=== PATIENT | male | born 1950 | race Two or more races ===

== ENCOUNTER 2019-10-20 13:37 | Emergency (ER) | payer MEDICARE ==
[~2019-10-20] VITALS: Ht 172.7 cm; Wt 83.9 kg
[2019-10-20 13:45] VITALS: BP 166/97
[2019-10-20] MEDS ORDERED: ATORVASTATIN CA20 MG ORAL (13:48)
[2019-10-20] MEDS ORDERED: GLIPIZIDE5 MG ORAL (13:48)
--- NOTE | 2019-10-20 13:48 | NUR ---
ED Nurse Note: walked in from home due to LLQ abdominal pain x3 days. pt aao x4 and ambulatory. calm and cooperative but gramicing for abdominal pain. no cardiac or pulmonary distress noted at this moment. pt is in gown and on surveillance system monitor. at bedside. no N/V at this moment.
--- NOTE | 2019-10-20 13:58 | NUR ---
ED Nurse Note: ERMD at bedside.
--- NOTE | 2019-10-20 14:07 | Emergency Room Report ---
History of Present Illness General Chief Complaint: General Complaint Source: Patient Present Illness HPI Disclaimer: Please note that this report is being documented using [employer] technology. This can lead to erroneous entry secondary to incorrect interpretation by the dictating instrument. HPI: 69-year-old male with history of hypertension diabetes presents for evaluation of abdominal cramping and leg pain. Symptoms began approximately 3 days ago. He states he had a "attack" where he had uncontrollable shaking, cramping in the left upper and lower abdomen rating down the left leg. He noted a tingling in numbness over the left anterior thigh. There is no nausea, vomiting or diarrhea reported recently. Denies chest pain, shortness of breath , cough, fever, chills, dysuria, flank pain. The pain resolved though he did call EMS and was evaluated he declined transport to the hospital at that time. He had a scheduled appointment with his PMD however this was canceled and presented to the emergency today for reevaluation. He said he has had 2 other similar attacks that lasted less than 5 minutes. He is currently asymptomatic but is very concerned. Pain was 10/10 at maximum. Currently pain is 0. No exacerbating or relieving factors noted. He has been eating and drinking at baseline and performing all his other activities of daily living. PMH: Hypertension, hyperlipidemia, diabetes PSH: Reviewed Allergies: Denies Social Hx: Denies Allergies: Coded Allergies: No Known Allergies (Unverified , 10/20/19) Nursing Documentation-PMH Past Medical History: No History, Except For Hx Hypertension: Yes Hx Diabetes: Yes Review of Systems All Other Systems: negative except mentioned in HPI Physical Exam Vital Signs Date Time Temp Pulse Resp B/P (MAP) Pulse Ox O2 Delivery O2 Flow Rate FiO2 10/20/19 13:42 98.2 83 17 166/97 (120) 99 General: Awake and alert, no acute distress HEENT: NC/AT. EOMI. Neck: Supple, trachea midline Chest Wall: No tenderness, no deformity Cardiovascular: RRR. S1 and S2 normal. No murmur appreciated. 2+ femoral pulses. Resp: Normal work of breathing. No cough, wheezing or crackles appreciated Abdomen: Abdomen is soft, slightly distended. Nontender, no rebound, no masses Skin: Intact. No abrasions, laceration or rash over the exposed skin MSK: Normal tone and bulk. Moving all extremities. No obvious deformity. Neuro: Awake and alert. Mentating appropriately. Intact sensation of the dermatomes of lower extremity bilaterally. Strength is 5/5 in all major muscle groups. Back/Spine: No midline tenderness in the cervical, thoracic or lumbosacral spine. Medical Decision Making Diagnostic Impression: Primary Impression: Abdominal pain Additional Impressions: Cardiomegaly Enlarged prostate Enlarged thyroid Renal arterial aneurysm ER Course 61-year-old male presents for evaluation of intermittent cramping and abdominal distention over the past 3 days rating down the left leg. Differential includes was not limited to gas pains, constipation, abdominal cramping, musculoskeletal cramping, pancreatitis, cholecystitis, appendicitis, bowel obstruction, vascular injury, AAA, aortic dissection. He rested stable vital signs, ambulated in the emergency department has no complaints at the soft abdomen and no pulsatile mass identified must rule out AAA and dissection. We will start broad metabolic infectious work-up and sent for CTA of the abdomen. Laboratory Tests Test 10/20/19 14:15 10/20/19 14:50 White Blood Count 9.5 K/UL (4.8-10.8) Red Blood Count 5.11 M/UL (4.70-6.10) Hemoglobin 16.2 G/DL (14.2-18.0) Hematocrit 43.1 % (42.0-52.0) Mean Corpuscular Volume 84 FL (80-99) Mean Corpuscular Hemoglobin 31.7 PG (27.0-31.0) H Mean Corpuscular Hemoglobin Concent 37.6 G/DL (32.0-36.0) H Red Cell Distribution Width 10.8 % (11.6-14.8) L Platelet Count 141 K/UL (150-450) L Mean Platelet Volume 9.8 FL (6.5-10.1) Neutrophils (%) (Auto) 60.0 % (45.0-75.0) Lymphocytes (%) (Auto) 30.6 % (20.0-45.0) Monocytes (%) (Auto) 7.3 % (1.0-10.0) Eosinophils (%) (Auto) 1.1 % (0.0-3.0) Basophils (%) (Auto) 0.9 % (0.0-2.0) Sodium Level 141 MMOL/L (136-145) Potassium Level 3.5 MMOL/L (3.5-5.1) Chloride Level 102 MMOL/L (98-107) Carbon Dioxide Level 29 MMOL/L (21-32) Anion Gap 10 mmol/L (5-15) Blood Urea Nitrogen 25 mg/dL (7-18) H Creatinine 1.2 MG/DL (0.55-1.30) Estimate Glomerular Filtration Rate > 60 mL/min (>60) Glucose Level 252 MG/DL (74-106) H Calcium Level 9.2 MG/DL (8.5-10.1) Total Bilirubin 0.6 MG/DL (0.2-1.0) Aspartate Amino Transferase (AST) 10 U/L (15-37) L Alanine Aminotransferase (ALT) 26 U/L (12-78) Alkaline Phosphatase 141 U/L (46-116) H Troponin I 0.000 ng/mL (0.000-0.056) Total Protein 7.3 G/DL (6.4-8.2) Albumin 3.6 G/DL (3.4-5.0) Globulin 3.7 g/dL Albumin/Globulin Ratio 1.0 (1.0-2.7) Lipase 128 U/L (73-393) Urine Color Yellow Urine Appearance Clear Urine pH 5 (4.5-8.0) Urine Specific [place] 1.025 (1.005-1.035) Urine Protein 2+ (NEGATIVE) H Urine Glucose (UA) 3+ (NEGATIVE) H Urine Ketones 1+ (NEGATIVE) H Urine Blood Negative (NEGATIVE) Urine Nitrite Negative (NEGATIVE) Urine Bilirubin Negative (NEGATIVE) Urine Urobilinogen 1 MG/DL (0.0-1.0) H Urine Leukocyte Esterase 1+ (NEGATIVE) H Urine RBC 0 /HPF (0 - 0) Urine WBC 0-2 /HPF (0 - 0) Urine Squamous Epithelial Cells Occasional /LPF Urine Bacteria Few /HPF (NONE) Urine Mucus Few /LPF (NONE/OCC) H EKG Diagnostic Results EKG Time: 14:13 Rate: normal Rhythm: NSR ST Segments: no acute changes Other Impression Sinus rhythm, left axis, normal intervals, no ST segment changes Rhythm Strip Diag. Results Rhythm Strip Time: 14:13 EP Interpretation: yes Rate: 70s Rhythm: NSR, no PVC's, no ectopy Reevaluation Time: 15:57 Last Vital Signs Date Time Temp Pulse Resp B/P (MAP) Pulse Ox O2 Delivery O2 Flow Rate FiO2 10/20/19 13:42 98.2 83 17 166/97 (120) 99 Reevaluation Impression EKG and labs are unremarkable. No evidence of aortic aneurysm or dissection on CTA. There are some incidental findings of enlarged thyroid, enlarged prostate , renal artery aneurysm, cardiomegaly for which the patient can follow-up as an outpatient. Remained stable with no pain or discomfort. Labs unremarkable. Patient may be discharged home with follow-up with his PMD. Discussed results with patient and family were present at bedside. They understand agree with this treatment plan will be discharged home Disposition: HOME, SELF-CARE Condition: Stable Dajuan Brock MD Oct 20, 2019 14:07
[2019-10-20] MEDS ORDERED: Omnipaue 350mg/ml 100ml vial INJ PRN (14:15)
[2019-10-20 14:30] LABS: BASOPHILS % (AUTO) 0.9 % (0.0-2.0); EOSINOPHILS % (AUTO) 1.1 % (0.0-3.0); HEMATOCRIT 43.1 % (42.0-52.0); HEMOGLOBIN 16.2 G/DL (14.2-18.0); LYMPHOCYTES % (AUTO) 30.6 % (20.0-45.0); MEAN CORPUSCULAR VOLUME 84 FL (80-99); MONOCYTES % (AUTO) 7.3 % (1.0-10.0); PLATELET COUNT 141 K/UL (150-450); RED BLOOD COUNT 5.11 M/UL (4.70-6.10); RED CELL DISTRIBUTION WIDTH 10.8 % (11.6-14.8); WHITE BLOOD COUNT 9.5 K/UL (4.8-10.8)
[2019-10-20 14:37] LABS: ANION GAP 10 mmol/L (5-15); BLOOD UREA NITROGEN 25 mg/dL (7-18); CALCIUM 9.2 MG/DL (8.5-10.1); CARBON DIOXIDE 29 MMOL/L (21-32); CHLORIDE 102 MMOL/L (98-107); CREATININE 1.2 MG/DL (0.55-1.30); POTASSIUM 3.5 MMOL/L (3.5-5.1); SODIUM 141 MMOL/L (136-145)
[2019-10-20 14:42] LABS: ALANINE AMINOTRANSFERASE 26 U/L (12-78); ALBUMIN 3.6 G/DL (3.4-5.0); ALKALINE PHOSPHATASE 141 U/L (46-116); ASPARTATE AMINO TRANSFERASE 10 U/L (15-37); BILIRUBIN,TOTAL 0.6 MG/DL (0.2-1.0)
[2019-10-20 14:57] LABS: APPEARANCE,URINE CLEAR; BILIRUBIN, URINE NEGATIVE (NEGATIVE); GLUCOSE, URINE (UA) 3+ (NEGATIVE); KETONES,URINE 1+ (NEGATIVE); LEUKOCYTE ESTERASE ,URINE 1+ (NEGATIVE); NITRITE,URINE NEGATIVE (NEGATIVE); PH,URINE 5 (4.5-8.0); PROTEIN,URINE 2+ (NEGATIVE); UROBILINOGEN,URINE 1 MG/DL (0.0-1.0)
[2019-10-20 15:05] LABS: COLOR,URINE YELLOW
--- NOTE | 2019-10-20 16:24 | Diagnostic Imaging Report ---
CLINICAL INDICATION:Abdominal pain, left leg tingling and numbness TECHNIQUE: IV administration nonionic contrast. Arterial phase spiral acquisitions obtained through the chest, abdomen, and pelvis. Multiplanar and 3-D reconstructions were generated. Total dose length product 1330 mGycm. CTDIvol(s) 2019, 73, 18 mGy. Radiation dose was minimized using automated exposure control COMPARISON: none FINDINGS Vascular: No evidence of thoracic aortic aneurysm or dissection. No evidence of abdominal aortic aneurysm or dissection. There is mural thickening of the distal abdominal aorta with some calcification but no focal stenosis. Patent nonstenotic great neck vessels. Patent nonstenotic celiac axis and proximal branches. There is atherosclerotic plaquing of the proximal superior mesenteric artery, resulting in less than 30% diameter narrowing. There are single bilateral nonstenotic renal arteries. There is fusiform aneurysmal dilatation of the main branch of the right renal artery just beyond the first bifurcation. This measures approximately 8 mm in diameter. Patent nonstenotic inferior mesenteric artery. The distal left common iliac artery is ectatic but not frankly aneurysmal. No significant common or external iliac stenosis demonstrated on either side. The internal iliac arteries and proximal branches are patent bilaterally. Although exam protocol is not tailored for evaluation of the pulmonary arteries, the pulmonary arteries are nonetheless well-opacified. There is no evidence of acute pulmonary embolus demonstrated. Chest: There is mild interstitial septal thickening and diffuse pulmonary parenchymal very mild groundglass opacity demonstrated. No dense consolidation. No definite masses, nodules, or effusions. The heart is enlarged. There is minimal pericardial fluid. No mediastinal or hilar mass or adenopathy. The thyroid is diffusely enlarged, and there is a subcentimeter right lower pole thyroid nodule. The remainder of the thyroid demonstrates homogeneous attenuation. No axillary or chest wall mass or adenopathy. Abdomen pelvis: The appendix is normal. No evidence of colonic diverticulosis or diverticulitis. No small bowel distention. No free or loculated intraperitoneal gas or fluid is evident. The liver demonstrates a calcification near the dome. No focal abnormality. The gallbladder, bile ducts, pancreas, spleen, adrenals. Kidneys are unremarkable. No renal or ureteral calculi, hydronephrosis, or hydroureter. The prostate is enlarged, measuring 6 cm transverse dimension. No pelvic mass or adenopathy. The bones demonstrate degenerative spondylosis changes. IMPRESSION: No evidence of aneurysm, dissection, or significant vascular obstruction. 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 Subcentimeter lower lower pole thyroid nodule, most likely benign. No further follow-up recommended. Prostatomegaly Other findings as noted, including degenerative spondylosis, hepatic granulomatous calcification The CT scanner at [facility] is accredited by the [employer] and the scans are performed using protocols designed to limit radiation exposure to as low as reasonably achievable to attain images of sufficient resolution adequate for diagnostic evaluation.
[2019-10-20 16:48] VITALS: BP 144/72
--- NOTE | 2019-10-20 16:50 | NUR ---
ED Nurse Note: Pt cleared by health care Provider for discharge. Patient accompanied by daughter. DC instructions/prescription was given and explained to pt and verbalized understanding of teachings. All medical deviecs such as ID band removed. Pt is AAO x4, ambulatory and left with all personal belongings. CT results printed out and provided to pt.
== END 2019-10-20 16:50 | disposition home or self-care (01) ==
LOC: EMR 14:15
DX: R10.9 Unspecified abdominal pain (principal); I51.7 Cardiomegaly; N40.0 Benign prostatic hyperplasia without lower urinary tract symptoms; E04.9 Nontoxic goiter, unspecified; I72.2 Aneurysm of renal artery; I10 Essential (primary) hypertension; E11.9 Type 2 diabetes mellitus without complications; E78.5 Hyperlipidemia, unspecified
CPT/HCPCS: 36415; 71275; 74174; 80053; 81003; 83690; 84484; 85025; 93005; 96360; 99284; Q9967